=== PATIENT | male | born 1960 | race Caucasian/White ===

== ENCOUNTER 2017-09-05 08:23 | Emergency (ER) | payer SELFPAY ==
[2017-09-05] MEDS ORDERED: Diazepam 5 MG TAB ONE (08:44)
[2017-09-05] MEDS ORDERED: Morphine 4 MG/ML VIAL ONE (08:45)
[2017-09-05] MEDS ORDERED: Ondansetron ODT 4 MG TAB ONE (08:45)
--- NOTE | 2017-09-05 09:16 | RAD ---
LUMBAR SPINE SERIES THREE VIEWS: HISTORY: Back pain, mostly left-sided. FINDINGS: Vertebral bodies maintain normal height. Degenerative osteophytes are seen along the course of the s pine, with minimal disk narrowing in the lower lumbar spine region. Pedicles are intact. No spondyl olisthesis. IMPRESSION: Mild arthritic changes of the spine. POS: [facility]
--- NOTE | 2017-09-05 09:17 | RAD ---
AP PELVIS: HISTORY: Pelvic pain. FINDINGS: The SI joints are symmetric. The symphysis region is unremarkable. There are some minimal arthritic changes of the left hip. There are some moderate arthritic changes of the right hip noted. IMPRESSION: No acute findings. Moderate arthritic changes of the right hip. POS: [facility]
== END 2017-09-05 09:30 | disposition home or self-care (01) ==
LOC: MADERS 08:23
DX: S39.012A Strain of muscle, fascia and tendon of lower back, initial encounter (principal); F17.210 Nicotine dependence, cigarettes, uncomplicated
CPT/HCPCS: 72100; 72170; 96372; J2270; Q0162

== ENCOUNTER 2017-12-25 11:13 | Emergency (ER) | payer SELFPAY ==
[2017-12-25] MEDS ORDERED: Ondansetron ODT 4 MG TAB ONE (11:52)
[2017-12-25] MEDS ORDERED: Cyclobenzaprine 10 MG TAB ONE (11:52)
[2017-12-25] MEDS ORDERED: MORPHINE 10 MG/ML SYRINGE ONE (11:52)
--- NOTE | 2017-12-25 14:11 | CT ---
CT LUMBAR SPINE WITHOUT CONTRAST: HISTORY: Low back pain. COMPARISON: Radiographs from 09/05/2017 FINDINGS: The aortic contour is normal. It is nonaneurysmal. There are multiple hypodensities of both kidneys , the largest in the left kidney, posterior cortex, inner pole, left kidney. The lung bases are clear. The retroperitoneum is unremarkable. There is no acute fracture or malalignment of the lumbar spine. Mild narrowing of the intraspinous p rocesses, L3-L4 and L4-L5. Levels are as follows: T12-L1: Mild degenerative disk space height loss. No neural foraminal or spinal canal narrowing. L1-L2: Mild disk desiccation. No significant neural foraminal or spinal canal narrowing. L2-L3: Mild circumferential disk bulge. Mild bilateral neural foraminal narrowing. The spinal martin l is approximately 9 mm. L3-L4: Mild degenerative disk space height loss and circumferential disk bulge. Moderate facet arth ropathy. There is mild bilateral neural foraminal narrowing. The spinal canal measures approximatel y 1 cm. L4-L5: Mild degenerative disk space height loss. Circumferential disk bulge. Mild ligamentum flavu m hypertrophy. No significant neural foraminal or spinal canal narrowing. L5-S1: Moderate degenerative disk space height loss. No neural foraminal or spinal canal narrowing. IMPRESSION: 1. No acute fracture or malalignment. 2. Mild to moderate spondylosis, as described above. POS: [facility]
== END 2017-12-25 13:40 | disposition home or self-care (01) ==
LOC: MADERS 11:13
DX: S39.012A Strain of muscle, fascia and tendon of lower back, initial encounter (principal); F17.210 Nicotine dependence, cigarettes, uncomplicated; X50.1XXA Overexertion from prolonged static or awkward postures, initial encounter
CPT/HCPCS: 72131; 96372; J2270; Q0162

== ENCOUNTER 2017-12-27 13:00 | Emergency (ER) | payer SELFPAY | END 2017-12-27 13:50 | disposition left against medical advice (07) | LOC: MADERS 13:00 | DX: Z53.21 Procedure and treatment not carried out due to patient leaving prior to being seen by health care provider (principal) ==

== ENCOUNTER 2019-04-11 12:59 | Emergency (ER) | payer SELFPAY ==
[2019-04-11] MEDS ORDERED: Sulfameth/Trimethoprim DS 800-160mg TAB ONE (13:25)
[2019-04-11] MEDS ORDERED: traMADol HCl 50 MG TAB ONE (13:25)
[2019-04-11] MEDS ORDERED: Cephalexin 500 MG CAP ONE (13:25)
== END 2019-04-11 13:35 | disposition home or self-care (01) ==
LOC: MADERS 12:59
DX: L03.114 Cellulitis of left upper limb (principal); F17.210 Nicotine dependence, cigarettes, uncomplicated
CPT/HCPCS: 99283

== ENCOUNTER 2019-04-14 08:22 | Emergency (ER) | payer SELFPAY ==
[2019-04-14] MEDS ORDERED: Ketorolac Tromethamine 60 MG/2 ML VIAL ONE (08:59)
--- NOTE | 2019-04-14 09:57 | RAD ---
RIGHT WRIST FOUR VIEWS: HISTORY: Right wrist pain. COMPARISON: None. FINDINGS: Four views of the right wrist show no evidence of acute fracture or dislocation. No degenerative tomas nges are seen. No soft tissue swelling is present. IMPRESSION: Unremarkable examination. POS: [facility]
== END 2019-04-14 09:50 | disposition home or self-care (01) ==
LOC: MADERS 08:22
DX: M11.231 Other chondrocalcinosis, right wrist (principal); F17.210 Nicotine dependence, cigarettes, uncomplicated; Z79.899 Other long term (current) drug therapy
CPT/HCPCS: 96372; J1885

== ENCOUNTER 2020-05-17 10:24 | Emergency (ER) | payer OTHER ==
[2020-05-17] MEDS ORDERED: predniSONE 20 MG TAB ONE (11:29)
[2020-05-17] MEDS ORDERED: Ketorolac Tromethamine 30 MG/ML VIAL ONE (11:29)
--- NOTE | 2020-05-17 12:13 | RAD ---
CERVICAL SPINE 6 VIEWS: Date: 05/17/2020 HISTORY: Neck pain and shoulder pain. FINDINGS: In the AP projection, there is a curvature to the right. Prominent facet hypertrophy is noted in the AP projection. In the lateral view, the vertebra show normal height and alignment with mild degenerat dewey changes. The disc spaces appear preserved. There is evidence of foraminal narrowing bilaterally s econdary to hypertrophic change. Oblique views are suboptimal due to the curvature of the neck. There is loss of disc space at the C4-5, C5-6, and C6-7 levels with posterior spondylosis and anterio r osteophytes. Alignment appears preserved. IMPRESSION: Moderate degenerative changes of the cervical spine. CT may be of benefit to further assess bony hype rtrophic changes and the related central canal and foraminal stenosis. POS: [facility]
[2020-05-17] MEDS ORDERED: HYDROcodone/Acetaminophen 5/325 mg Tablet ONE (12:27)
== END 2020-05-17 12:35 | disposition home or self-care (01) ==
LOC: MADERS 10:24
DX: M54.2 Cervicalgia (principal); M25.511 Pain in right shoulder; Z87.891 Personal history of nicotine dependence; X50.1XXA Overexertion from prolonged static or awkward postures, initial encounter
CPT/HCPCS: 72050; 96372; J1885; J7512

== ENCOUNTER 2022-11-05 12:28 | Emergency (ER) | payer BC, OTHER ==
[2022-11-05] MEDS ORDERED: Orphenadrine Citrate 60 MG/2 ML VIAL ONE (13:22)
[2022-11-05] MEDS ORDERED: Ketorolac Tromethamine 60 MG/2 ML VIAL ONE (13:22)
[2022-11-05] MEDS ORDERED: HYDROcodone/Acetaminophen 5/325 mg Tablet ONE (13:22)
== END 2022-11-05 13:46 | disposition home or self-care (01) ==
LOC: MADERS 12:28
DX: M25.512 Pain in left shoulder (principal); R07.81 Pleurodynia; I10 Essential (primary) hypertension; Z87.891 Personal history of nicotine dependence; Z79.899 Other long term (current) drug therapy
CPT/HCPCS: 96372; J1885; J2360

== ENCOUNTER 2023-06-28 06:55 | Emergency (ER) | payer BC, OTHER ==
[2023-06-28] MEDS ORDERED: Lidocaine 4% Patch ONE (07:25)
[2023-06-28] MEDS ORDERED: Orphenadrine Citrate 60 MG/2 ML VIAL ONE (07:25)
[2023-06-28] MEDS ORDERED: Dexamethasone 4 mg/ml Vial ONE (07:25)
[2023-06-28] MEDS ORDERED: Lisinopril 10 MG TAB ONE (08:06)
== END 2023-06-28 08:15 | disposition home or self-care (01) ==
LOC: MADERS 06:55
DX: M54.42 Lumbago with sciatica, left side (principal); R20.0 Anesthesia of skin; Z87.891 Personal history of nicotine dependence; I10 Essential (primary) hypertension
CPT/HCPCS: 96372; J1100; J2360

== ENCOUNTER 2023-07-03 11:38 | Emergency (ER) | payer BC, OTHER ==
[2023-07-03] MEDS ORDERED: Ketorolac Tromethamine 60 MG/2 ML VIAL ONE (12:48)
[2023-07-03] MEDS ORDERED: Orphenadrine Citrate 60 MG/2 ML VIAL ONE (12:48)
[2023-07-03] MEDS ORDERED: HYDROcodone/Acetaminophen 10/325 mg Tablet ONE (12:48)
[2023-07-03] MEDS ORDERED: methylPREDNISolone Sod Succ/PF 125 MG/2 ML VIAL ONE (14:41)
[2023-07-03] MEDS ORDERED: Nitroglycerin 0.4 MG TAB 1 EACH ONE ×2 (14:48→15:09)
== END 2023-07-03 15:37 | disposition home or self-care (01) ==
LOC: MADERS 11:38
DX: M54.42 Lumbago with sciatica, left side (principal); I10 Essential (primary) hypertension; F17.220 Nicotine dependence, chewing tobacco, uncomplicated
CPT/HCPCS: 96372; 99283; J1885; J2360; J2930